=== PATIENT | female | born 1995 | race Two or more races ===

== ENCOUNTER 2018-03-11 17:08 | Emergency (ER) | payer OTHER ==
[2018-03-11 17:20] VITALS: BP 114/75
[2018-03-11] MEDS ORDERED: NITROFURANTOIN MACROBID 100 MG CAP PO ONE (17:35)
[2018-03-11] MEDS ORDERED: PHENAZOPYRIDINE HCL 200 MG TAB PO ONE (17:35)
--- NOTE | 2018-03-11 17:37 | EDPHY ---
H & P Time Seen by Provider: 03/11/18 17:19 HPI/ROS: This morning this patient describes onset of dysuria, frequency and urgency. She also notes moderate suprapubic discomfort that comes in waves described as a "pulling sensation". While she has had brief episodes of mild dysuria in the past they have resolved with increased fluid intake over the course of 24-48 hours. She has never had this severe of symptoms. She reports that she has strictly bothered by the dysuria, frequency urgency. Her mother brought her in by private vehicle for evaluation. She has never had a UTI before. ROS: Constitutional: No fevers GI: No nausea or vomiting. She has normal bowel movements. She still is tolerating p.o. Intake : Last menstrual. His current and normal timing and normal flow. She had no antecedent vaginal discharge or vaginal lesions or other concerns for STDs prior to the onset of her symptoms. She has no associated flank pain. Integumentary: No rash 5 point review of symptoms is performed and otherwise negative with exception of pertinent positives and negatives listed in HPI and ROS Past Medical/Surgical History: with 1 tab. Otherwise healthy. No prior UTIs Social History: No recent unprotected sex or other risk factors for STDs. Smoking Status: Never smoked Physical Exam: General Appearance: Alert, no distress. Eyes: Pupils equal and round no pallor or injection. ENT, Mouth: Mucous membranes moist. Respiratory: There are no retractions, lungs are clear to auscultation. Cardiovascular: Regular rate and rhythm. Gastrointestinal: Normoactive, soft, mild suprapubic tenderness with no guarding or rebound. Back: No CVA tenderness Neurological: GCS 15 Skin: Warm and dry, no rashes. Extremities are symmetrical, full range of motion. Psychiatric: Mood and affect are normal DIFFERENTIAL DIAGNOSIS: After history and physical exam differential diagnosis was considered for cystitis, urethral irritation, urethritis Constitutional: Initial Vital Signs Temperature (C) 37.1 C 03/11/18 17:16 Heart Rate 98 03/11/18 17:16 Respiratory Rate 16 03/11/18 17:16 Blood Pressure 114/75 03/11/18 17:16 O2 Sat (%) 98 03/11/18 17:16 O2 Delivery Mode Room Air Allergies/Adverse Reactions: Penicillins Allergy (Verified 03/11/18 17:15) Home Medications: Medication Instructions Recorded Nitrofurantoin Macrobid [Macrobid 100 mg PO BID #10 cap 03/11/18 100 mg (RX)] Phenazopyridine HCl [Pyridium 200 mg PO TID PRN #6 tab 03/11/18 200mg (RX)] MDM/Departure - MDM Diagnostics: POC urine dip is positive for urine nitrites and leukocytes. It is also positive for RBCs but she is currently on her menses. ED Course/Re-evaluation: Patient is treated with Pyridium and Macrobid. I counseled patient regarding cystitis and UTIs in General. Answered all her questions prior to discharge home. Discussion: Patient with simple cystitis without any red flag findings. She understands need to return to the emergency department should she develop any additional or worsening symptoms despite treatment plan of Macrobid and Pyridium. - Depart Disposition: Home, Routine, Self-Care Clinical Impression: Cystitis Condition: Good Instructions: Phenazopyridine (By mouth), Nitrofurantoin Combination (By mouth) , Urinary Tract Infection in Women (ED) Additional Instructions: Diagnosis: Cystitis (bladder infection) Plan: Drink plenty fluids Macrobid antibiotic Peridium for discomfort in addition as needed Ibuprofen in addition if needed for discomfort. Return for any significant worsening despite the treatment plan. Stand Alone Forms: Work Excuse Prescriptions: Nitrofurantoin Macrobid [Macrobid 100 mg (RX)] 100 mg PO BID #10 cap Phenazopyridine HCl [Pyridium 200mg (RX)] 200 mg PO TID PRN #6 tab PRN Reason: dysuria Referrals: NONE *PRIMARY CARE P,. [Primary Care Provider] - As per Instructions Dayton Kim MD [Medical Doctor] - As per Instructions
== END 2018-03-11 18:01 | disposition home or self-care (01) ==
LOC: CED 17:08
DX: N30.90 Cystitis, unspecified without hematuria (principal)